=== PATIENT | female | born 1980 | race Caucasian/White ===

== ENCOUNTER 2019-10-06 04:00 | Inpatient (IN) ==
[2019-10-06] MEDS ORDERED: PEPCID PO PRN (04:15)
[2019-10-06] MEDS ORDERED: KEFZOL 1 GM/D5W 1 GM/50 ML IVPB IV PRN (04:15)
[2019-10-06] MEDS ORDERED: TYLENOL PO PRN (04:15)
[2019-10-06] MEDS ORDERED: REGLAN PO ONE (04:15)
[2019-10-06] MEDS ORDERED: LR 1,000 ML IV ONE (04:15)
[2019-10-06] MEDS ORDERED: ZOFRAN IV PRN (04:15)
[2019-10-06] MEDS ORDERED: AMBIEN PO PRN ×2 (04:15→14:30)
[2019-10-06] MEDS ORDERED: STADOL IV PRN ×3 (04:15)
[2019-10-06] MEDS ORDERED: BRETHINE SUBQ PRN (04:15)
[2019-10-06] MEDS ORDERED: PEPCID PO ONE (04:15)
[2019-10-06] MEDS ORDERED: PEPCID IV PRN (04:15)
[2019-10-06] MEDS ORDERED: SODIUM CHLORIDE 0.9% INJ SCH (04:45)
[2019-10-06 04:56] LABS: URINE SOURCE VOIDED
[2019-10-06] MEDS ORDERED: CYTOTEC VAG ONE (05:00)
[2019-10-06 05:02] LABS: BASO# 0.03 X1000 (0.0-0.2); BASO% 0.2 % (0.0-0.8); EOS# 0.23 X1000 (0.0-0.7); EOS% 1.9 % (0.0-10.0); HEMATOCRIT 37.4 % (37.0-47.0); HEMOGLOBIN 12.2 g/dL (12.0-16.0); IMM GRAN# 0.09 X1000 (0.0-0.04); IMM GRAN% 0.7 % (0.0-0.5); LYMPH# 3.55 X1000 (1.2-3.4); LYMPH% 28.8 % (20.5-51.1); MCH 29.9 PG (27-31); MCHC 32.6 g/dL (33-37); MCV 91.7 FL (81-99); MONO# 0.84 X1000 (0.11-0.59); MONO% 6.8 % (1.7-9.3); MPV 12.2 FL (7.4-10.4); NEUT# 7.59 X1000 (1.4-6.5); NEUT% 61.6 % (42.2-75.2); PLT 250 X1000 (130-400); RBC 4.08 XMIL (4.2-5.4); RDW 16.1 % (11.5-14.5); WBC 12.33 X1000 (4.8-10.8)
[2019-10-06 05:03] LABS: BILIRUBIN URINE NEGATIVE (NEGATIVE); BLOOD URINE TRACE (NEGATIVE); COLOR YELLOW; GLUCOSE URINE NEGATIVE (NEGATIVE); KETONE URINE NEGATIVE (NEGATIVE); LEUKOCYTES URINE NEGATIVE (NEGATIVE); NITRITE URINE NEGATIVE (NEGATIVE); PH URINE 5.5; PROTEIN URINE NEGATIVE (NEGATIVE); SP GRAVITY URINE 1.004; TURBIDITY URINE CLEAR (CLEAR); UROBILINOGEN URINE NORMAL (NORMAL)
[2019-10-06 05:14] LABS: UR AMPHETAMINES QUAL NONE DETECTED (NONE DETECT); UR BARBITUATES QUAL NONE DETECTED (NONE DETECT); UR BENZODIAZEPIN QUAL NONE DETECTED (NONE DETECT); UR CANNABINOIDS QUAL NONE DETECTED (NONE DETECT); UR COCAINE QUAL NONE DETECTED (NONE DETECT); UR METHADONE QUAL NONE DETECTED (NONE DETECT); UR OPIATES QUAL NONE DETECTED (NONE DETECT); UR OXYCODONE QUAL NONE DETECTED (NONE DETECT); UR PCP QUAL NONE DETECTED (NONE DETECT)
[2019-10-06] MEDS ORDERED: NAROPIN 0.2% INJ ONE (08:45)
--- NOTE | 2019-10-06 08:49 | HISTORY AND PHYSICAL ---
HISTORY OF PRESENT ILLNESS: Ms. Clay is a 39-year-old G2, P1-0-0-1 at 39 weeks, who presents for elective induction of labor. The patient reports good movement. Denies contractions, leakage of fluid or vaginal bleeding. Current complicated by tobacco abuse and elevated 1-hour oral glucose tolerance testing, confirmatory 3-hour oral glucose tolerance test negative. ALLERGIES: No known drug allergies. MEDICATIONS: vitamins. PAST MEDICAL HISTORY: Depression, stable, no medications. PAST SURGICAL HISTORY: None. GYNECOLOGICAL HISTORY: Menarche at age 10. Denies STD exposure. OBSTETRICAL HISTORY: G2, P1-0-0-1. One prior full-term delivery on 09/15/2011 at 39 weeks, length of labor 30 hours, weight 7 pounds 4 ounces, male infant delivered via vacuum. SOCIAL HISTORY: Positive tobacco use. Denies alcohol or drug use. FAMILY HISTORY: Noncontributory. PHYSICAL EXAMINATION: VITAL SIGNS: Temperature 97 degrees Fahrenheit, pulse rate 87, respiration rate 18, blood pressure 121/78, weight 214 pounds, height 5 feet 3 inches. GENERAL: No acute distress. Alert, awake, oriented x3. CARDIOVASCULAR: Regular rate and rhythm. Positive S1, S2. RESPIRATORY: Clear to auscultation bilaterally. Negative rhonchi, rales or wheezing. ABDOMEN: Gravid, soft, nontender to palpation. STERILE VAGINAL EXAM: 3 cm dilated, 50% effaced, -3 station. EXTREMITIES: No calf tenderness. There is +1 edema. ELECTRONIC MONITORIN beats per minute, moderate variability, positive accelerations, negative decelerations, category 1 tracing. LABORATORY DATA: WBCs 12.33, hemoglobin 12.1, hematocrit 37.4, platelets 250,000. GBS negative. RPR nonreactive. ASSESSMENT: Sherley Clay is a 39-year-old G2, P1-0-0-1 at 39 weeks gestation who presents for elective induction of labor. PLAN: 1. Admit to Labor and Delivery for scheduled induction. 2. Obtain routine labor labs. 3. Induction with vaginal Cytotec 25 mcg x1 dose, augmentation with possible artificial rupture of membrane/Pitocin. 4. Continuous electronic monitoring. 5. The patient counseled on risks, benefits, and alternatives to elective induction of labor. Risks not limited to infection, bleeding, vaginal laceration, vacuum delivery, emergency delivery. Patient understands the risks and agrees to said procedure. 6. Estimated weight 8 pounds 12 ounces. 7. Anticipate vaginal delivery.
[2019-10-06] MEDS ORDERED: FENTANYL-BUPIV-NS 500 MCG-0.125% 250 ML EPIDURAL SCH (09:00)
[2019-10-06] MEDS ORDERED: LR 1,000 ML ONE (09:37)
[2019-10-06] MEDS ORDERED: LR 1,000 ML IV SCH (09:45)
[2019-10-06] MEDS: PITOCIN 30 UNITS/NS 30 UNIT/500 ML IV.SOLN IV SCH ×2 (10:00→14:16)
[2019-10-06] MEDS ORDERED: MINERAL OIL TOP PRN (11:35)
[2019-10-06] MEDS ORDERED: XYLOCAINE-MPF 1% INJ PRN ×2 (11:36→14:30)
[2019-10-06] MEDS ORDERED: PITOCIN 30 UNITS/NS 30 UNIT/500 ML IV.SOLN IV SCH (14:30)
[2019-10-06] MEDS ORDERED: BOOSTRIX VACCINE IM ONE (14:30)
[2019-10-06] MEDS ORDERED: PITOCIN 20 UNITS/NS 20 UNITS/1,000 ML IV.SOLN IV SCH (14:30)
[2019-10-06] MEDS ORDERED: M-M-R II VACCINE SUBQ ONE (14:30)
[2019-10-06] MEDS ORDERED: BENADRYL IV PRN (14:30)
[2019-10-06] MEDS ORDERED: PERI MEDS (DERMOPLAST/NUPERCAINAL/TUCKS) MISC PRN (14:30)
[2019-10-06] MEDS ORDERED: HYDROXYZINE IM PRN (14:30)
[2019-10-06] MEDS ORDERED: CYTOTEC PO PRN (14:30)
[2019-10-06] MEDS ORDERED: ATARAX PO PRN (14:30)
[2019-10-06] MEDS ORDERED: PITOCIN IM PRN (14:30)
[2019-10-06] MEDS ORDERED: MINERAL OIL PO PRN (14:30)
[2019-10-06] MEDS ORDERED: BENADRYL PO PRN (14:30)
[2019-10-06] MEDS: MOTRIN PO PRN (17:26)
[2019-10-06] MEDS: NORCO-5 PO PRN (19:39)
[2019-10-06] MEDS: PERICOLACE PO SCH (21:28)
--- NOTE | 2019-10-06 21:34 | OPERATIVE NOTE ---
PROCEDURE DATE: 10/06/2019 SURGEON: Jarrett Ferrell DO COVERAGE SPECIALIST: None. PROCEDURE PERFORMED: Spontaneous vaginal delivery. DESCRIPTION OF PROCEDURE: The patient delivered a viable male at 39 weeks gestation weighing 8 pounds 15 ounces with Apgars of 9 and 10 at 1 and 5 minutes respectively. The vertex was delivered spontaneously over intact perineum. No nuchal cord was identified. The anterior shoulder was delivered atraumatically by maternal expulsive efforts and the assistance of downward traction. The posterior shoulder delivered with maternal expulsive efforts and upward traction. The remainder of the fetus delivered spontaneously. Upon delivery, the cord was clamped and cut while the infant was being assessed by waiting photonic laboratory technician staff. Cord blood was obtained for blood gas analysis. The placenta delivered spontaneously intact with a three-vessel cord. To enhance uterine contractions, IV oxytocin was administered. The cervix, vagina and perineum were inspected for laceration. A second-degree laceration was noted at the perineum and repaired with 2-0 chromic in a running nonlocking fashion to reapproximate the laceration in layers. Good hemostasis was confirmed. ESTIMATED BLOOD LOSS: Was approximately 200 mL. COUNTS: Were correct x2.
[2019-10-07] MEDS: MOTRIN PO PRN ×3 (00:36→18:19)
[2019-10-07] MEDS: NORCO-5 PO PRN ×3 (00:36→18:19)
[2019-10-07 05:53] LABS: BASO# 0.02 X1000 (0.0-0.2); BASO% 0.2 % (0.0-0.8); EOS# 0.23 X1000 (0.0-0.7); EOS% 1.8 % (0.0-10.0); HEMOGLOBIN 10.7 g/dL (12.0-16.0); IMM GRAN# 0.08 X1000 (0.0-0.04); IMM GRAN% 0.6 % (0.0-0.5); LYMPH# 3.21 X1000 (1.2-3.4); LYMPH% 24.7 % (20.5-51.1); MCH 29.3 PG (27-31); MCHC 31.5 g/dL (33-37); MCV 93.2 FL (81-99); MONO# 0.79 X1000 (0.11-0.59); MONO% 6.1 % (1.7-9.3); MPV 12.1 FL (7.4-10.4); NEUT# 8.64 X1000 (1.4-6.5); NEUT% 66.6 % (42.2-75.2); PLT 204 X1000 (130-400); RBC 3.65 XMIL (4.2-5.4); RDW 16.2 % (11.5-14.5); WBC 12.97 X1000 (4.8-10.8)
--- NOTE | 2019-10-07 07:34 | OB/GYN PROGRESS NOTE ---
- Subjective PP1 s/p no cx s/nt -cce bottle hgb 10.7 fm 12.2 A PP2 routine care ambulate voiding well OB Physical Exam Vital Signs - 8 hr 10/07/19 00:00 10/07/19 04:00 Temperature 98.0 F 97.6 F Pulse Rate 85 79 Respiratory Rate 20 20 Blood Pressure 118/62 116/58 O2 Sat by Pulse Oximetry 97 98 - CONSTITUTIONAL General Appearance: appears well Active Medications Generic Name Dose Route Start Last Admin Trade Name Freq PRN Reason Stop Dose Admin Acetaminophen 650 mg 10/06/19 04:15 Tylenol PO Q4-6H PRN PRN Headache Hydrocodone Bitart/Acetaminophen 1 each 10/06/19 14:30 10/07/19 00:36 [place]-5 PO 1 each Q3-4H PRN PRN Administration Pain (1-6 on Pain Scale) Benzocaine 1 each 10/06/19 14:30 10/06/19 17:26 Trudy Meds (Dermoplast/Nupercainal/Tucks) MISC 1 applic 3-4XDAY PRN PRN Administration episiotomy/hemorrhoids Butorphanol Tartrate 1 mg 10/06/19 04:15 Stadol IV Q2H PRN PRN Pain (1-4 on Pain Scale) Butorphanol Tartrate 2 mg 10/06/19 04:15 Stadol IV PRN PRN Pain Butorphanol Tartrate 2 mg 10/06/19 04:15 Stadol IV Q2H PRN PRN Pain (5-10 on Pain Scale) Diphenhydramine HCl 12.5 mg 10/06/19 14:30 Benadryl IV Q4H PRN PRN Itching Diphenhydramine HCl 25 mg 10/06/19 14:30 Benadryl PO Q4H PRN PRN Itching Famotidine 20 mg 10/06/19 04:15 Pepcid PO Q12H PRN PRN GI upset or indigestion Famotidine 20 mg 10/06/19 04:15 Pepcid IV Q12H PRN PRN GI upset or indigestion Hydroxyzine HCl 50 mg 10/06/19 14:30 Atarax PO Q3-4H PRN PRN Nausea Hydroxyzine HCl 50 mg 10/06/19 14:30 Hydroxyzine IM Q3-4H PRN PRN Nausea Cefazolin Sodium/Dextrose 1 gm in 50 mls @ 100 mls/hr 10/06/19 04:15 Kefzol 1 Gm/D5w IV ONCE PRN PRN section Fentanyl/Bupivacaine/Sodium Chlor 250 mls @ 0 mls/hr 10/06/19 09:00 10/06/19 08:55 Enuhmqoy-Utmwh-Fx 500 Mcg-0.125% EPIDURAL 12 mls/hr .Q0M JOSEMANUEL Administration As Directed Lactated Ringer's 1,000 mls @ 0 mls/hr 10/06/19 09:45 Lr IV .Q0M JOSEMANUEL As Directed Oxytocin/Sodium Chloride 20 units in 1,000 mls @ 0 mls/hr 10/06/19 14:30 10/06/19 15:15 Pitocin 20 Units/Ns IV 125 mls/hr .Q0M JOSEMANUEL Administration As Directed Ibuprofen 800 mg 10/06/19 14:30 10/07/19 00:36 Motrin PO 800 mg Q8H PRN PRN Administration cramping Lidocaine HCl 30 ml 10/06/19 11:36 Xylocaine-Mpf 1% INJ PRN PRN Lacerations following delivery Lidocaine HCl 30 ml 10/06/19 14:30 Xylocaine-Mpf 1% INJ PRN PRN Perineal repair Mineral Oil 30 ml 10/06/19 11:35 10/06/19 14:12 Mineral Oil TOP 30 ml PRN PRN Administration Vaginal delivery Mineral Oil 30 ml 10/06/19 14:30 Mineral Oil PO PRN PRN Perineal massage Misoprostol 800 microgm 10/06/19 14:30 Cytotec PO PRN PRN Severe bleeding Ondansetron HCl 4 mg 10/06/19 04:15 Zofran IV PRN PRN Nausea Oxytocin 20 unit 10/06/19 14:30 Pitocin IM PRN PRN Severe bleeding Senna/Docusate Sodium 1 each 10/06/19 21:00 10/06/19 21:28 Pericolace PO 1 each QHS JOSEMANUEL Administration Sodium Chloride 5 - 10 ml 10/06/19 04:45 Sodium Chloride 0.9% INJ DIRECTED JOSEMANUEL Terbutaline Sulfate 0.25 mg 10/06/19 04:15 Brethine SUBQ PRN PRN tachysystole/hypertonus Zolpidem Tartrate 10 mg 10/06/19 04:15 Ambien PO HS PRN PRN Sleep Zolpidem Tartrate 10 mg 10/06/19 14:30 Ambien PO HS PRN PRN Sleep Laboratory Results - last 24 hr 10/06/19 10/07/19 04:45 05:30 WBC 12.97 H RBC 3.65 L Hgb 10.7 L Hct 34.0 L MCV 93.2 MCH 29.3 MCHC 31.5 L RDW Std Deviation 16.2 H Plt Count 204 MPV 12.1 H Immature Gran % (Auto) 0.6 H Neut % (Auto) 66.6 Lymph % (Auto) 24.7 [place] % (Auto) 6.1 Eos % (Auto) 1.8 Baso % (Auto) 0.2 Immature Gran # (Auto) 0.08 H Neut # (Auto) 8.64 H Lymph # (Auto) 3.21 [place] # (Auto) 0.79 H Eos # (Auto) 0.23 Baso # (Auto) 0.02 Rubella Immunity Screen IMMUNE
[2019-10-07] MEDS: PERICOLACE PO SCH (20:54)
[2019-10-08] MEDS: MOTRIN PO PRN (07:06)
[2019-10-08] MEDS: NORCO-5 PO PRN ×2 (07:06→11:34)
[2019-10-08 07:40] VITALS: BP 131/75
--- NOTE | 2019-10-08 07:52 | OB/GYN PROGRESS NOTE ---
- Subjective 39 yo PPD#2 s/p at 39 weeks with AMA, tobacco abuse, failed 1 hr/passed 3 hr Patient seen and examined. She is upset this AM because the baby cannot be discharged today. She denies any pain. She is ambulating and voiding without difficulty. She is tolerating a regular diet. She denies any nausea/vomiting. She notes normal lochia. She is breast/bottle feeding. She is considering a BTL for pp contraception. OB Physical Exam Vital Signs - 8 hr 10/08/19 04:00 10/08/19 07:34 Temperature 97.3 F L 98.0 F Pulse Rate 77 92 H Respiratory Rate 18 18 Blood Pressure 123/67 131/75 O2 Sat by Pulse Oximetry 96 98 - CONSTITUTIONAL General Appearance: appears well, alert, no apparent distress - HEAD, EARS, NOSE, MOUTH & THROAT HENMT: normocephalic/atraumatic - RESPIRATORY Respiratory: lungs clear, normal breath sounds, no respiratory distress - CARDIOVASCULAR Cardiovascular: normal peripheral pulses, regular rate, rhythm - GASTROINTESTINAL (ABDOMEN) Abdominal Exam: non tender, soft, other (fundus firm, below umbilicus) - MUSCULOSKELETAL Extremity: normal range of motion, non-tender, no calf tenderness - SKIN Integumentary: normal color - NEUROLOGIC Neurologic: grossly normal - PSYCHIATRIC Psych/Mental Status: normal mood/affect Active Medications Generic Name Dose Route Start Last Admin Trade Name Freq PRN Reason Stop Dose Admin Acetaminophen 650 mg 10/06/19 04:15 Tylenol PO Q4-6H PRN PRN Headache Hydrocodone Bitart/Acetaminophen 1 each 10/06/19 14:30 10/08/19 07:06 [place]-5 PO 1 each Q3-4H PRN PRN Administration Pain (1-6 on Pain Scale) Benzocaine 1 each 10/06/19 14:30 10/06/19 17:26 Trudy Meds (Dermoplast/Nupercainal/Tucks) MISC 1 applic 3-4XDAY PRN PRN Administration episiotomy/hemorrhoids Butorphanol Tartrate 1 mg 10/06/19 04:15 Stadol IV Q2H PRN PRN Pain (1-4 on Pain Scale) Butorphanol Tartrate 2 mg 10/06/19 04:15 Stadol IV PRN PRN Pain Butorphanol Tartrate 2 mg 10/06/19 04:15 Stadol IV Q2H PRN PRN Pain (5-10 on Pain Scale) Diphenhydramine HCl 12.5 mg 10/06/19 14:30 Benadryl IV Q4H PRN PRN Itching Diphenhydramine HCl 25 mg 10/06/19 14:30 Benadryl PO Q4H PRN PRN Itching Famotidine 20 mg 10/06/19 04:15 Pepcid PO Q12H PRN PRN GI upset or indigestion Famotidine 20 mg 10/06/19 04:15 Pepcid IV Q12H PRN PRN GI upset or indigestion Hydroxyzine HCl 50 mg 10/06/19 14:30 Atarax PO Q3-4H PRN PRN Nausea Hydroxyzine HCl 50 mg 10/06/19 14:30 Hydroxyzine IM Q3-4H PRN PRN Nausea Cefazolin Sodium/Dextrose 1 gm in 50 mls @ 100 mls/hr 10/06/19 04:15 Kefzol 1 Gm/D5w IV ONCE PRN PRN section Fentanyl/Bupivacaine/Sodium Chlor 250 mls @ 0 mls/hr 10/06/19 09:00 10/06/19 08:55 Heeompuq-Swuib-Rw 500 Mcg-0.125% EPIDURAL 12 mls/hr .Q0M JOSEMANUEL Administration As Directed Lactated Ringer's 1,000 mls @ 0 mls/hr 10/06/19 09:45 Lr IV .Q0M JOSEMANUEL As Directed Oxytocin/Sodium Chloride 20 units in 1,000 mls @ 0 mls/hr 10/06/19 14:30 10/06/19 15:15 Pitocin 20 Units/Ns IV 125 mls/hr .Q0M JOSEMANUEL Administration As Directed Ibuprofen 800 mg 10/06/19 14:30 10/08/19 07:06 Motrin PO 800 mg Q8H PRN PRN Administration cramping Lidocaine HCl 30 ml 10/06/19 11:36 Xylocaine-Mpf 1% INJ PRN PRN Lacerations following delivery Lidocaine HCl 30 ml 10/06/19 14:30 Xylocaine-Mpf 1% INJ PRN PRN Perineal repair Mineral Oil 30 ml 10/06/19 11:35 10/06/19 14:12 Mineral Oil TOP 30 ml PRN PRN Administration Vaginal delivery Mineral Oil 30 ml 10/06/19 14:30 Mineral Oil PO PRN PRN Perineal massage Misoprostol 800 microgm 10/06/19 14:30 Cytotec PO PRN PRN Severe bleeding Ondansetron HCl 4 mg 10/06/19 04:15 Zofran IV PRN PRN Nausea Oxytocin 20 unit 10/06/19 14:30 Pitocin IM PRN PRN Severe bleeding Senna/Docusate Sodium 1 each 10/06/19 21:00 10/07/19 20:54 Pericolace PO 1 each QHS JOSEMANUEL Administration Sodium Chloride 5 - 10 ml 10/06/19 04:45 Sodium Chloride 0.9% INJ DIRECTED JOSEMANUEL Terbutaline Sulfate 0.25 mg 10/06/19 04:15 Brethine SUBQ PRN PRN tachysystole/hypertonus Zolpidem Tartrate 10 mg 10/06/19 04:15 Ambien PO HS PRN PRN Sleep Zolpidem Tartrate 10 mg 10/06/19 14:30 Ambien PO HS PRN PRN Sleep OB Assessment & Plan (1) Status post vaginal delivery Status: Acute Plan: 39 yo PPD#2 s/p at 39 weeks with AMA, tobacco abuse, failed 1hr/passed 3 hr 1. HD stable, afebrile 2. Routine PP care 3. Encourage ambulation/breast feeding 4. Discharge today, will room-in because baby not being discharged today 5. Considering BTL for pp contraception
[2019-10-08] MEDS ORDERED: PNEUMOVAX 23 IM ONE (08:00)
--- NOTE | 2019-10-09 14:40 | DISCHARGE SUMMARY ---
ADMISSION DATE: 10/06/2019 DISCHARGE DATE: 10/08/2019 CONDITION ON DISCHARGE: Stable. ADMITTING PHYSICIAN: Indy Bahena FINAL DIAGNOSES: 1. 39-year-old, G2, P2-0-0-2 day #2, status post spontaneous vaginal delivery. 2. Advanced maternal age. 3. Tobacco abuse. 4. Failed 1 hour/passed 3 hour. HOSPITAL COURSE: The patient presented to Labor and delivery on October 05 for a scheduled elective induction of labor. She underwent a spontaneous vaginal delivery on October 05 without complication. She had a routine course. On day #2, she was deemed stable for discharge. She is ambulating and voiding without difficulty. She is tolerating, tolerating a regular diet and notes normal lochia. She is breast and bottle feeding. She is considering a bilateral tubal ligation for contraception. The patient will be discharged to board because infant is not able to be discharged today. FOLLOWUP INSTRUCTIONS: Patient instructed to notify doctor with temperature greater than 100.4 degrees Fahrenheit, vaginal bleeding greater than a pad an hour, foul-smelling vaginal discharge, severe abdominal pain. Instructed to place nothing in her vagina for 6 weeks. No tampons/douching/sex. DISCHARGE MEDICATIONS: 1. Motrin 800 mg p.o. q. 8 hours p.r.n. pain. 2. Trudy-Colace 1 tablet p.o. at bedtime p.r.n. constipation. FOLLOWUP APPOINTMENT: The patient instructed to make a visit in [address] Ferrell.
== END 2019-10-08 12:00 | disposition home or self-care (01) | DRG 807 ==
LOC: LD 04:12
PROVIDERS: ADMIT Obstetrics & Gynecology; ATTEND Obstetrics & Gynecology